=== PATIENT | male | born 1970 | race Caucasian/White ===

== ENCOUNTER 2024-09-23 19:00 | Emergency (ER) | payer MEDICAID ==
[~2024-09-23] VITALS: Ht 162.6 cm; Wt 83.4 kg
[2024-09-23 19:04] VITALS: O2SAT 100
[2024-09-23 19:06] VITALS: BP 150/88; PULSE 83; RESP 18; TEMP 36.7; O2SAT 98
[2024-09-23] MEDS: TETRACAINE 0.5% OPHTH DROPS 4ML BOTHEYE ONE (20:45)
[2024-09-23] MEDS: FLUORESCEIN SODIUM 1MG/STRIP LEFTEYE ONE (20:45)
[2024-09-23] MEDS ORDERED: OCUFLX RIGHTEYE (23:03)
== END 2024-09-23 23:30 | disposition home or self-care (01) ==
LOC: ER 19:00
DX: S05.01XA Injury of conjunctiva and corneal abrasion without foreign body, right eye, initial encounter (principal); Z79.899 Other long term (current) drug therapy; X58.XXXA Exposure to other specified factors, initial encounter; Y93.89 Activity, other specified; Y92.89 Other specified places as the place of occurrence of the external cause; Y99.8 Other external cause status
CPT/HCPCS: 99283